=== PATIENT | male | born 1960 | race Caucasian/White ===

== ENCOUNTER → 2016-12-27 | Day surgery (SDC) | payer OTHER ==
[2016-12-21 14:53] VITALS: Ht 175.3 cm; Wt 165.9 kg
[~2016-12-27] VITALS: Ht 175.3 cm; Wt 165.9 kg
[~2016-12-27] MED LIST: ALLO300T2 PO; ATROPINE SULFATE 0.1 MG/ML 5ML SYR IV PRN; CHOL1000 PO; CYAN10005 PO; EpHEDrine SULFATE INJ 50 MG/ML AMP IV PRN; LIDOCAINE HCL 2% 2 ML VIAL (20MG/ML) ONE; MULT-506 PO; PRLSR20 PO; PROPOFOL IV EMULSION 10 MG/ML 20 ML VIAL IV ONE; SODIUM CHLORIDE 0.9% 500ML 500 ML IV ONE
--- NOTE | 2016-12-27 08:48 | Endo History and Physical ---
History & Physical Date of Service: Dec 27, 2016. Chief Complaint: screening Referring Physician: no PCP assigned ,Visits [facility] in [place] History of Present Illness pt for screening colonoscopy Past Surgical History Hx Cardiac Surgery: No Hx Internal Defibrillator: No Hx Pacemaker: No Hx Abdominal Surgery: Yes (GASTRIC SLEEVE, APPY) Hx of Implantable Prosthesis: No Hx Post-Op Nausea and Vomiting: No Hx Cancer Surgery: No Hx Thoracic Surgery: No Hx Orthopedic: No Hx Urinary Tract Surgery: Yes (HYDROCELE REPAIR AND VASECTOMY) Family History None Social History Smoking Status: Never Smoker Hx Substance Use: No Hx Alcohol Use: No Allergies Coded Allergies: Penicillins (Verified Allergy, Unknown, SWELLING(?), 12/21/16) Current Medications Reported Home Medications Medications Dose Route/Sig Max Daily Dose Days Date Category Vitamin B-12 (Cyanocobalamin) 1,000 Mcg Tab 1,000 Mcg PO DAILY 12/21/16 Reported Vitamin D3 (Cholecalciferol) 1,000 Unit Tab 1 Tab PO DAILY 12/21/16 Reported Multivitamin (Multivitamins) Tab 1 Tab PO DAILY 12/21/16 Reported Zyloprim (Allopurinol) 300 Mg Tab 300 Mg PO QAM 12/21/16 Reported Prilosec (Omeprazole) 20 Mg Capcr 20 Mg PO BID 12/21/16 Reported Vital Signs Weight (Kilograms): 165.91 Height (Feet): 5 Height (Inches): 9 Date Time Temp Pulse Resp B/P (MAP) Pulse Ox O2 Delivery O2 Flow Rate FiO2 12/27/16 08:32 36.9 95 22 170/75 (106) 95 Room Air Physical Exam General Appearance: no apparent distress Respiratory/Chest: Auscultation: breath sounds normal Cardiovascular: Heart Auscultation: RRR Abdomen: Inspection & Palpation: soft Liver: non-tender Assessment and Plan stable for colonoscopy
--- NOTE | 2016-12-27 09:20 | GI REPORT ---
Procedure Date: 12/27/2016 8:23 AM Procedure: Colonoscopy Indications: Personal history of colonic polyps Medicines: See the Anesthesia note for documentation of the administered medications Complications: No immediate complications. Estimated Blood Loss: Estimated blood loss: none. Procedure: Pre-Anesthesia Assessment: - Prior to the procedure, a History and Physical was performed, and patient medications, allergies and sensitivities were reviewed. The patient's tolerance of previous anesthesia was reviewed. - The risks and benefits of the procedure and the sedation options and risks were discussed with the patient. All questions were answered and informed consent was obtained. - Patient identification and proposed procedure were verified prior to the procedure by the physician and the nurse. The procedure was verified in the pre-procedure area. - Pre-procedure physical examination revealed no contraindications to sedation. - After reviewing the risks and benefits, the patient was deemed in satisfactory condition to undergo the procedure. After I obtained informed consent, the scope was passed under direct vision. Throughout the procedure, the patient's blood pressure, pulse, and oxygen saturations were monitored continuously. The scope was introduced through the anus and advanced to the terminal ileum, with identification of the appendiceal orifice and IC valve. The colonoscopy was performed without difficulty. The patient tolerated the procedure well. The quality of the bowel preparation was good. Findings: The perianal and digital rectal examinations were normal. The terminal ileum appeared normal. Many small-mouthed diverticula were found in the sigmoid colon. The exam was otherwise without abnormality on direct and retroflexion views. Impression: - The examined portion of the ileum was normal. - Diverticulosis in the sigmoid colon. - The examination was otherwise normal on direct and retroflexion views. - No specimens collected. Recommendation: - Repeat colonoscopy in 5 years for surveillance. - Discharge patient to home. Rowdy Higgins M.D. Rowdy Higgins MD 12/27/2016 9:20:20 AM This report has been signed electronically. Note Initiated On: 12/27/2016 8:23 AM I attest to the content of the Intraoperative Record and orders documented therein, exceptions below
--- NOTE | 2016-12-27 09:22 | Discharge Instructions ---
Endoscopy Patient Instructions Date / Procedure(s) Performed Dec 27, 2016. Colonoscopy Allergy Information Coded Allergies: Penicillins (Verified Allergy, Unknown, SWELLING(?), 12/21/16) Discharge Date / Findings Dec 27, 2016. mild diverticulosis Provider Instructions Activity Restrictions - No exercising or heavy lifting for 24 hours. - Do not drink alcohol the day of the procedure. - Do not drive a car or operate machinery until the day after the procedure. - Do not make any important decisions or sign important papers in 24 hours after the procedure. Following Day: - Return to full activity which may include returning to work/school. Diet Start your diet with liquids and light foods (jello, soup, juice, toast). Then eat your usual diet if not nauseated. Treatment For Common After Affects For mild abdominal pain, bloating, or excessive gas: - Rest - Eat lightly - Lie on right side Follow-Up Information Follow-up with no PCP assigned ,Visits [facility] in [place] as scheduled Anesthesia Information What You Should Know You have had a procedure that required some medicine to reduce anxiety and discomfort. This treatment is called moderate sedation. After receiving the treatment, you may be sleepy, but you will be able to breathe on your own. The effects of the treatment may last for several hours. Follow these instructions along with Activity/Diet recommendations noted above: * Do NOT do anything where dizziness or clumsiness would be dangerous. * Rest quietly at home today, then you can be up and about tomorrow. * Have a responsible person stay with you the rest of today. * You may have had an I.V. today. If so, you may take the dressing off later today. Recommendations Call your doctor if: * Trouble breathing * Continuous vomiting for more than 24 hours * Temperature above 101 degrees * Severe abdominal pain or bloating * Pain not relieved by pain medicine ordered * There is increased drainage or redness from any incision * A large amount of rectal bleeding greater than 2-3 tablespoons. (If you had a polyp/s removed or have hemorrhoids, a small amount of blood - from the rectum is to be expected.) * You have any unanswered questions or concerns. IN THE EVENT OF A SERIOUS EMERGENCY, GO TO THE NEAREST EMERGENCY ROOM Your discharge instructions were prepared by provider Rowdy Higgins. Patient Instructions Signature Page Chilo Beckham Patient (or Guardian) Signature/Date: I have read and understand the instructions given to me by my caregivers. Caregiver/RN/Doctor Signature/Date: The above-named patient and/or guardian has received patient instructions on this date. + Original Patient Signature Page (only) stays with chart. Please make copy for patient.
--- NOTE | 2016-12-27 09:41 | Anesthesiology Progress Note ---
Anesthesia Post Op Note Date & Time Dec 27, 2016 at 09:41 Vital Signs Pain Intensity: 0 Vital Signs Past 12 Hours Date Time Temp Pulse Resp B/P (MAP) Pulse Ox O2 Delivery O2 Flow Rate FiO2 12/27/16 09:32 87 20 151/88 (109) 93 Room Air 12/27/16 09:18 86 16 138/78 (98) 95 Room Air 12/27/16 08:32 36.9 95 22 170/75 (106) 95 Room Air Notes Mental Status: alert / awake / arousable, participated in evaluation Pt Amnestic to Procedure: Yes Nausea / Vomiting: adequately controlled Pain: adequately controlled Airway Patency, RR, SpO2: stable & adequate BP & HR: stable & adequate Hydration State: stable & adequate Anesthetic Complications: no major complications apparent
[2016-12-27 09:45] VITALS: BP 159/100; PULSE 85; O2SAT 94
== END | disposition home or self-care (01) ==
LOC: C.GI 08:08
PROVIDERS: ATTEND Internal Medicine Gastroenterology
DX: Z12.11 Encounter for screening for malignant neoplasm of colon (principal); K57.90 Diverticulosis of intestine, part unspecified, without perforation or abscess without bleeding; Z86.010 Personal history of colon polyps